=== PATIENT | female | born 1950 ===

== ENCOUNTER 2023-03-20 12:33 | Inpatient (IN) | payer OTHER ==
[~2023-03-20] VITALS: Ht 160 cm; Wt 77.1 kg
[2023-03-21] MEDS ORDERED: INDERAL PO (13:54)
[2023-03-26] MEDS ORDERED: ALENDRONATE SOD35 MG (13:44)
[2023-03-26] MEDS ORDERED: FAMOTIDINE20 MG (13:44)
[2023-03-26] MEDS ORDERED: ONDANSETRON HCL8 MG (13:44)
[2023-03-26] MEDS ORDERED: PROPRANOLOL HCL20 MG (13:44)
[2023-03-26] MEDS ORDERED: DAFLONEX-XL 11300 MG (13:44)
[2023-04-05] MEDS ORDERED: FAMOTIDINE20 MG PO (18:58)
[2023-04-05] MEDS ORDERED: HYOSCYAMINE0.125 M1 SL (18:58)
[2023-04-05] MEDS ORDERED: GAS RELIEF125 MG PO (18:59)
[2023-04-05] MEDS ORDERED: KETO10TA2 PO (18:59)
[2023-04-05] MEDS ORDERED: NEURONTIN300 MG PO (19:00)
== END 2023-04-06 15:29 | disposition home or self-care (01) | DRG 330 ==
LOC: ADM 03-21 11:15 → O/R 03-26 07:29 → SURH 03-26 07:29 → CIR.AMB 03-26 11:15 → SURG 03-26 11:15 → EDSTATUS 03-26 11:15 → SURG 03-26 13:30 → SURH 03-26 15:45
PROVIDERS: ADMIT Surgery; ATTEND Surgery
PROC: 0DTP4ZZ Resection of Rectum, Percutaneous Endoscopic Approach (ICD-10-PCS; 2023-03-26)
PROC: 0DUP47Z Supplement Rectum with Autologous Tissue Substitute, Percutaneous Endoscopic Approach (ICD-10-PCS; 2023-03-26)
PROC: 0DJD8ZZ Inspection of Lower Intestinal Tract, Via Natural or Artificial Opening Endoscopic (ICD-10-PCS; 2023-03-26)
PROC: 3E0F7SF Introduction of Other Gas into Respiratory Tract, Via Natural or Artificial Opening (ICD-10-PCS; 2023-03-26)
PROC: 0D1B4Z4 Bypass Ileum to Cutaneous, Percutaneous Endoscopic Approach (ICD-10-PCS; principal; 2023-03-26 13:30)
DX: C20 Malignant neoplasm of rectum (principal); B49 Unspecified mycosis; K56.7 Ileus, unspecified; K94.13 Enterostomy malfunction; K91.89 Other postprocedural complications and disorders of digestive system; K94.12 Enterostomy infection; L30.8 Other specified dermatitis; R59.0 Localized enlarged lymph nodes

== ENCOUNTER 2023-07-09 20:41 | Inpatient (IN) | payer OTHER ==
[~2023-07-09] VITALS: Ht 167.6 cm; Wt 52.2 kg
[~2023-07-09 20:41] MED LIST: ALENDRONATE SOD35 MG; DAFLONEX-XL 11300 MG; FAMOTIDINE20 MG; FAMOTIDINE20 MG PO; GAS RELIEF125 MG PO; HYOSCYAMINE0.125 M1 SL; INDERAL PO; KETO10TA2 PO; NEURONTIN300 MG PO; ONDANSETRON HCL8 MG; PROPRANOLOL HCL20 MG
[2023-07-17] MEDS ORDERED: HYOSCYAMINE0.125 M1 SL (07:41)
== END 2023-07-17 15:51 | disposition home or self-care (01) | DRG 389 ==
LOC: ER 20:41 → SURG 07-10 00:09
PROVIDERS: Internal Medicine Geriatric Medicine; Nurse Practitioner Family; ADMIT Surgery; ATTEND Surgery
PROC: 02HV33Z Insertion of Infusion Device into Superior Vena Cava, Percutaneous Approach (ICD-10-PCS; 2023-07-11)
PROC: BW21YZZ Computerized Tomography (CT Scan) of Abdomen and Pelvis using Other Contrast (ICD-10-PCS; principal; 2023-07-13)
DX: K56.690 Other partial intestinal obstruction (principal); C20 Malignant neoplasm of rectum; A08.8 Other specified intestinal infections; E87.6 Hypokalemia; Z93.2 Ileostomy status; N18.9 Chronic kidney disease, unspecified